=== PATIENT | female | born 1945 | race Caucasian/White ===

== ENCOUNTER 2018-05-05 11:31 | Emergency (ER) | payer OTHER ==
[~2018-05-05] VITALS: Ht 157.5 cm; Wt 72.2 kg
[~2018-05-05 11:31] MED LIST: APRESOLINE10 MG PO; APRESOLINE25 MG PO; BENICAR40 MG PO; CEPHALEXIN500 MG PO; CLINDAMYCIN HC300 MG PO; DOXYCYCLINE HY100 MG PO; LORAZEPAM0.5 MG PO; METOPROLOL SUC100 MG PO
[2018-05-05 14:09] LABS: HEMATOCRIT 16.4 % (36.0-46.0); MCH 30.6 PG (29.0-34.0); MCHC 34.8 G/DL (30.0-36.0); MCV 88.2 FL (83-99); PLATELET COUNT 141 K/uL (156-360); RBC DIS.WIDTH-CV 12.6 % (11.8-14.6); RBC DIS.WIDTH-SD 40.6 % (39-53); RED BLOOD COUNT 1.86 M/uL (3.80-5.20); WHITE BLOOD COUNT 6.1 K/uL (4.1-10.2)
[2018-05-05 14:10] LABS: HEMOGLOBIN 5.7 G/DL (11.9-15.5)
[2018-05-05 14:30] LABS: HEMATOCRIT 34.2 % (36.0-46.0); MCH 30.1 PG (29.0-34.0); MCHC 35.4 G/DL (30.0-36.0); MCV 85.1 FL (83-99); RBC DIS.WIDTH-CV 12.4 % (11.8-14.6); RBC DIS.WIDTH-SD 38.2 % (39-53); WHITE BLOOD COUNT 13.7 K/uL (4.1-10.2)
[2018-05-05 14:31] LABS: HEMOGLOBIN 12.1 G/DL (11.9-15.5); PLATELET COUNT 331 K/uL (156-360); RED BLOOD COUNT 4.02 M/uL (3.80-5.20)
[2018-05-05 14:39] LABS: CHLORIDE 99 mEq/L (99-109); POTASSIUM 4.3 mEq/L (3.7-5.4); SODIUM 132 mEq/L (136-147)
[2018-05-05 14:42] LABS: GLUCOSE 125 mg/dL (70-99); TOTAL PROTEIN 6.9 g/dL (6.4-8.3)
[2018-05-05 14:44] LABS: TOTAL BILIRUBIN 0.4 mg/dL (0.0-1.0)
[2018-05-05 14:45] LABS: ALKALINE PHOSPHATASE 53 IU/L (3-129); CREATININE 0.9 mg/dL (0.6-1.3); GFR ESTIMATE (CALCULATED) > 59 mL/min/
[2018-05-05 14:47] LABS: AST (GOT) 22 IU/L (2-34); UREA NITROGEN (BUN) 17 mg/dL (9-23)
[2018-05-05 14:48] LABS: ALT (GPT) 20 IU/L (3-49)
[2018-05-05 14:54] LABS: TROP-I INTERPRETATION NEGATIVE; TROPONIN-I 0.01 ng/mL (0.0-0.30)
[2018-05-05] MEDS ORDERED: FLEXERIL10 MG PO (15:19)
[2018-05-05] MEDS ORDERED: PERCOCET 5/31 TABLET PO (15:19)
[2018-05-05 16:31] VITALS: BP 147/69
== END 2018-05-05 16:31 | disposition home or self-care (01) ==
LOC: EME 11:31
PROVIDERS: Nurse Practitioner Family
DX: S22.41XA Multiple fractures of ribs, right side, initial encounter for closed fracture (principal); V44.6XXA Car passenger injured in collision with heavy transport vehicle or bus in traffic accident, initial encounter; Y92.410 Unspecified street and highway as the place of occurrence of the external cause
CPT/HCPCS: 71100; 71260; 74177; 80053; 84484; 85027; 99281; 99285; J7030